=== PATIENT | male | born 1950 | race Caucasian/White ===

== ENCOUNTER 2018-05-12 18:52 | Emergency (ER) | payer OTHER, BC ==
--- NOTE | 2018-05-12 19:23 | EDPHY ---
H & P Stated Complaint: SLIPPED ON ICE FELL/R KNEE BUCKLED/HEARD POP R UPPER LEG/KNEE Time Seen by Provider: 05/12/18 19:18 HPI/ROS: CHIEF COMPLAINT: Right thigh pain HISTORY OF PRESENT ILLNESS: The patient is a 67-year-old man who was at work when he slipped on ice and his knee buckled. He did not fall to the ground but he felt a pop in his right thigh. He continues to be able to ambulate but has pain. He has normal extension and flexion of his knee. He denies hip pain. No other injuries. This happened about 2 hr prior to arrival. Severity: Moderate Modifying factors: None REVIEW OF SYSTEMS: Constitutional: denies: chills, fever, recent illness, recent injury EENTM: denies: blurred vision, double vision, nose congestion Respiratory: denies: cough, shortness of breath Cardiac: denies: chest pain, irregular heart rate, lightheadedness, palpitations Gastrointestinal/Abdominal: denies: abdominal pain, diarrhea, nausea, vomiting, blood streaked stools Genitourinary: denies: dysuria, frequency, hematuria, pain Musculoskeletal: See HPI Skin: denies: lesions, rash, jaundice, bruising Neurological: denies: headache, numbness, paresthesia, tingling, dizziness, weakness Hematologic/Lymphatic: denies: blood clots, easy bleeding, easy bruising Immunologic/allergic: denies: HIV/AIDS, transplant 10 systems reviewed and negative except as noted EXAM: GENERAL: Well-appearing, well-nourished and in no acute distress. HEAD: Atraumatic, normocephalic. EYES: Pupils equal round and reactive to light, extraocular movements intact, sclera anicteric, conjunctiva are normal. ENT: TMs normal, nares patent, oropharynx clear without exudates. Moist mucous membranes. NECK: Normal range of motion, supple without lymphadenopathy or JVD. LUNGS: Breath sounds clear to auscultation bilaterally and equal. No wheezes rales or rhonchi. HEART: Regular rate and rhythm without murmurs, rubs or gallops. ABDOMEN: Soft, nontender, normoactive bowel sounds. No guarding, no rebound. No masses appreciated. BACK: No CVA tenderness, no spinal tenderness, step-offs or deformities EXTREMITIES: Pain to right lateral thigh midshaft femur. No obvious swelling bruising or deformity. Normal range of motion of hip and knee. No laxities appreciated. Normal extension of leg. Normal weight-bearing. Normal pulses and sensation distally. NEUROLOGICAL: Cranial nerves II through XII grossly intact. Normal speech, normal gait. 5/5 strength, normal movement in all extremities, normal sensation , normal reflexes PSYCH: Normal mood, normal affect. SKIN: Warm, dry, normal turgor, no visible rashes or lesions. Source: Patient Exam Limitations: No limitations - Personal History Current Tetanus Diphtheria and Acellular Pertussis (TDAP): Yes - Medical/Surgical History Hx Asthma: No Hx Chronic Respiratory Disease: No Hx Diabetes: Yes Hx Cardiac Disease: Yes Hx Renal Disease: No Hx Cirrhosis: No Hx Alcoholism: No Hx HIV/AIDS: No Hx Splenectomy or Spleen Trauma: No Other PMH: cabg 2002,cholesterol. "borderline" diabetes - Family History Significant Family History: No pertinent family hx - Social History Smoking Status: Never smoked Alcohol Use: Sober Drug Use: None Constitutional: Initial Vital Signs Temperature (C) 36.6 C 05/12/18 18:59 Heart Rate 66 05/12/18 18:59 Respiratory Rate 19 05/12/18 18:59 Blood Pressure 149/81 H 05/12/18 18:59 O2 Sat (%) 95 05/12/18 18:59 O2 Delivery Mode Room Air Allergies/Adverse Reactions: No Known Allergies Allergy (Verified 05/12/18 18:57) Home Medications: Medication Instructions Recorded Crestor 02/12/14 Metoprolol Tartrate 02/12/14 Aspirin 81mg (OTC) 04/24/15 Multivitamin (OTC) 04/24/15 Medical Decision Making - Diagnostics Imaging: Discussed imaging studies w/ call center manager Radiologist ED Course/Re-evaluation: 8:00 p.m. we discussed the x-ray results which are reassuring. I suspect the patient has a muscle tear. He still has normal extension and strength. He is able to ambulate with moderate pain. I filled out his worker's Comp paperwork and suggested that he walked less than 2 miles a day until you follow up with his primary and lift less than 20 lb per day. Patient and employer seem happy with this plan. He is on Crestor. We discussed the possibility this may have weak and his muscles little bit in to discuss this with his primary. His leg was wrapped with an Khurram bandage. Differential Diagnosis: Partial list of the Differential diagnosis considered include but were not limited to; muscle strain, tendon injury and although unlikely based on the history and physical exam, I also considered fracture, joint injury, infection. I discussed these differential diagnoses and the plan with the [patient] as well as the usual and expected course. The [patient understands] that the diagnosis is provisional and that in medicine we are not always correct and that further workup is often warranted. Usual and customary warnings were given. All of the [patient's] questions were answered. The [patient was] instructed to return to the emergency department should the symptoms at all worsen or return, otherwise to followup with the physician as we discussed. Departure - Departure Disposition: Home, Routine, Self-Care Clinical Impression: Strain of right quadriceps Qualifiers: Encounter type: initial encounter Qualified Code(s): S76.111A - Strain of right quadriceps muscle, fascia and tendon, initial encounter Condition: Fair Instructions: Muscle Strain (ED) Referrals: Shamika Medrano MD [Medical Doctor] - 5-7 days, if not improved Meagan Borges MD [Non Staff Provider (MD)] - 2-3 days, call for appt.
[2018-05-12 20:04] VITALS: BP 133/90
[2018-05-12] MEDS ORDERED: IBUPROFEN 600 MG TAB PO ONE (20:15)
== END 2018-05-12 20:18 | disposition home or self-care (01) ==
DX: S76.111A Strain of right quadriceps muscle, fascia and tendon, initial encounter (principal); W00.0XXA Fall on same level due to ice and snow, initial encounter; Y99.0 Civilian activity done for income or pay; Y92.9 Unspecified place or not applicable; Y93.9 Activity, unspecified